=== PATIENT | male | born 2000 | race Caucasian/White ===

== ENCOUNTER 2024-12-01 14:01 | Emergency (ER) | payer MEDICAID ==
[2024-12-01 14:14] VITALS: PULSE 99; RESP 16; O2SAT 97
== END 2024-12-01 16:48 | disposition left against medical advice (07) ==
LOC: ER 14:01
DX: N48.89 Other specified disorders of penis (principal); Z53.21 Procedure and treatment not carried out due to patient leaving prior to being seen by health care provider